=== PATIENT | male | born 1935 | race Caucasian/White ===

== ENCOUNTER 2023-07-29 10:23 | Outpatient (AMB) | payer MEDICARE, OTHER, SELFPAY ==
--- NOTE | 2023-07-29 10:34 | A.OFFPC_ITS ---
Vital Signs 07/29/23 10:35 07/29/23 10:54 Height 5 ft 7 in Weight 157 lb 6 oz BMI 24.6 BP 148/62 H 150/58 H Blood Pressure Location Lt brachial Lt brachial Position Sitting Sitting Respiration 16 Pulse 64 Pulse Source Pulse Oximeter Temp 98 F Temp Source Oral Pulse Oximetry (%) 98 Oxygen Delivery Method Room Air Intake Visit Reasons: Est Care Chronic conditions Intake Note: New patient visit Professional Shopper Required: Yes Professional Shopper Name: Fatou Allergies acetaminophen [From Percocet] Allergy (Unknown, Verified 07/29/23 10:57) Fainting lorazepam Allergy (Unknown, Verified 07/29/23 10:57) Fainting oxycodone [From Percocet] Allergy (Unknown, Verified 07/29/23 10:57) Fainting Medication List - Last Reconciled 07/29/23 by Benita Alexandre MD acetaminophen 325 mg PO QID PRN amlodipine 5 mg PO DAILY aspirin 81 mg PO DAILY atenolol 25 mg PO DAILY duloxetine 30 mg PO DAILY lisinopril 40 mg PO DAILY rosuvastatin 10 mg PO BEDTIME triamcinolone acetonide 0.1% 1 appl topical BID Tobacco use date assessed: 07/29/23 Fall risk assessment: No Falls in past year Last assessed Fall Risk: 07/29/23 Dental Screening Dental Screen Date: 07/29/23 Did you have a dental visit in the last 12 months?: No Did you have a dental problem in the last 6 months where you did not have access to dental care?: No Was dental information given to patient?: Patient has dentist (Has dentures, goes every two years) HPI HPI Comments History of Present Illness Details This is an 88 year old male with a past medical history of htn, s/p AVR, hyperlipidemia, OA, depression & anxiety presenting for follow up He is overall feeling well. continues to do well on cymbalta CV: On atenolol, lisinopril, crestor, ASA. follows with cardiology. no post TAVR complications PFS Medical History (Updated 07/29/23 @ 13:39 by Benita Alexandre MD) Anxiety Basal cell carcinoma Eczema Arthritis Social History (Updated 07/29/23 @ 11:03 by Glo Gerenwood CMA) [facility] Patient Tobacco Use Status: Never used Tobacco e-Cigarette/Vaping Use: Never Used service: Yes Current occupational status: retired Hearing needs: Yes (hearing aids) Vision needs: Yes (glasses) Questionnaire PHQ-9 Over the last 2 weeks, how often have you been bothered by any of the following problems? 1. Little interest or pleasure in doing things: not at all 2. Feeling down, depressed, or hopeless: not at all 3. Trouble falling or staying asleep, or sleeping too much: not at all 4. Feeling tired or having little energy: not at all 5. Poor appetite or overeating: not at all 6. Feeling bad about yourself - or that you are a failure or have let yourself or your family down: not at all 7. Trouble concentrating on things, such as reading the newspaper or watching television: not at all 8. Moving or speaking so slowly that other people could have noticed. Or the opposite - being so fidgety or restless that you have been moving around a lot more than usual: not at all 9. Thoughts that you would be better off or of hurting yourself in some way: not at all Total score: 0 Depression Screening Interpretation: Negative (neg) Depression Screening Done: Yes 19626 - PHQ-9 Billing: Yes Source: Developed by Drs. Javad Davis, Cindy Parra, Jet Hammond and colleagues, with an educational adalid from [employer]. Thrive Questionnaire Date Thrive assessed: 07/29/23 I am a: Patient What is your living situation today?: I have a steady place to live Within the past 12 months, did the food you bought not last and you didn't have the money to get more?: Never true Within the past 12 months, did you worry whether your food would run out before you got money to buy more?: Never true Do you have trouble paying for medicines?: No Do you have trouble getting transportation to medical appointments?: No Do you have trouble paying your heating and electricity bill?: No Do you have trouble taking care of your child, family member or friend?: No Do you have trouble with day-to-day activities such as bathing, preparing meals, shopping, managing finances, etc.?: No Are you currently unemployed and looking for a job?: No Are you interested in more education?: No Please select the resources that you would like help with: None Currently or been in a relationship where the following occur: no concerns reported THRIVE Score: 0 AUDIT C Alcohol Use Questionnaire (AUDIT-C) 1. How often do you have a drink containing alcohol?: Never 3. How often do you have six or more drinks on one occasion?: Never Total Score: 0 GAURANG-7 AMB Questionnaire GAURANG-7 Date GAURANG - 7 assessed: 07/29/23 Feeling nervous, anxious, or on edge: 0 = Not at all Not being able to stop or control worryin = Not at all Worrying too much about different things: 0 = Not at all Trouble relaxin = Not at all Being so restless that it is hard to sit still: 0 = Not at all Becoming easily annoyed or irritable: 0 = Not at all Feeling afraid as if something awful might happen: 0 = Not at all Total GAURANG-7 score (0-4 normal; 5-9 mild; 10-14 moderate; 15-21 severe): 0 Source: Developed by Drs. Javad Davis, Cindy Parra, Jet Hammond and colleagues, with an educational adalid from [employer]. GAURANG-7 Assessment Billing GAURANG-7 Assessment Tool: GAURANG-7 Assessment [id number] Review of Systems Const Details: ROS CONSTITUTIONAL: Denies weight loss, fever and chills. HEENT: Denies changes in vision and hearing. RESPIRATORY: Denies SOB and cough. CV: Denies palpitations and CP GI: Denies abdominal pain, nausea, vomiting and diarrhea. : Denies dysuria and urinary frequency. MSK: Denies new myalgia and joint pain. SKIN: Denies rash and pruritus. NEUROLOGICAL: Denies headache PSYCHIATRIC: Denies recent changes in mood. Physical exam (Primary Care) Vital Signs: Last Vital Signs Temp 98 F 07/29/23 10:35 Pulse 64 07/29/23 10:35 Resp 16 07/29/23 10:35 BP 150/58 H 07/29/23 10:54 Pulse Ox 98 07/29/23 10:35 Oxygen Delivery Method Room Air 07/29/23 10:35 BMI result Body Mass Index 24.6 Tobacco/Smoking Status: Tobacco use Status Tobacco use date assessed 07/29/23 07/29/23 11:05 Patient Tobacco Use Status Never used Tobacco 07/29/23 11:05 e-Cigarette/Vaping Use Never Used 07/29/23 11:05 PHQ-9: PHQ-9 Score PHQ-9: Total score 0 07/29/23 11:20 Depression Screening Interpretation: Negative (neg) Thrive Assessment: Date of Thrive Assessment Date Thrive assessed 07/29/23 07/29/23 11:05 Currently or been in a relationship where the following occur: no concerns reported Const Other: PHYSICAL EXAM: GENERAL: Alert and oriented x 3. NAD EYES: EOMI. Anicteric. HENT: Moist mucous membranes. LUNGS: Clear to auscultation bilaterally. CARDIOVASCULAR: Regular rate and rhythm. ABDOMEN: Soft, non-tender +bs EXTREMITIES: No edema. Non-tender. SKIN: No rashes or lesions. Warm. NEUROLOGIC: No focal neurological deficits. CN II-XII grossly intact PSYCHIATRIC: Cooperative. Appropriate mood and affect Assessment and Plan Assessment & Plan (1) Hyperlipidemia: Comment: continue statin Code(s): E78.5 - Hyperlipidemia, unspecified Qualifiers: Hyperlipidemia type: mixed hyperlipidemia Qualified Code(s): E78.2 - Mixed hyperlipidemia (2) Screening, deficiency anemia, iron: Code(s): Z13.0 - Encounter for screening for diseases of the blood and blood-forming organs and certain disorders involving the immune mechanism (3) Hypertension: Comment: continue current medications Code(s): I10 - Essential (primary) hypertension Qualifiers: Hypertension type: primary hypertension Qualified Code(s): I10 - Essential (primary) hypertension (4) Depression, major, recurrent, in partial remission: Code(s): F33.41 - Major depressive disorder, recurrent, in partial remission Plan: depression is well controlled on current therapy (5) S/P TAVR (transcatheter aortic valve replacement): Code(s): Z95.2 - Presence of prosthetic heart valve Orders: Orders Basic Metabolic Panel Today E78.5 - Hyperlipidemia, unspecified, I10 - Essential (primary) hypertension, Z95.2 - Presence of prosthetic heart valve Complete Blood Count Auto Diff Today E78.5 - Hyperlipidemia, unspecified, F33.41 - Major depressive disorder, recurrent, in partial remission, I10 - Essential (primary) hypertension, Z13.0 - Encounter for screening for diseases of the blood and blood-forming organs and certain disorders involving the immune mechanism, Z95.2 - Presence of prosthetic heart valve Coding Level of Care Code Est Pt Level 4 (31520) Complex EM visit Add On G2211 Diagnoses Mixed hyperlipidemia E78.2 Hyperlipidemia type: mixed hyperlipidemia Screening, deficiency anemia, iron Z13.0 Primary hypertension I10 Hypertension type: primary hypertension Depression, major, recurrent, in partial remission F33.41 S/P TAVR (transcatheter aortic valve replacement) Z95.2 Additional Codes GAURANG-7 Assessment Billing - GAURANG-7 Assessment Tool: GAURANG-7 Assessment [id number] ([id number])
[2023-07-29 10:35] VITALS: BP 148/62; PULSE 64; RESP 16; TEMP 36.6; O2SAT 98; BMI 24.6
[2023-07-29 10:54] VITALS: BP 150/58
== END 2023-07-29 13:14 | disposition home or self-care (01) ==
PROVIDERS: Visit Provider Internal Medicine
DX: E78.2 Mixed hyperlipidemia (principal); Z13.0 Encounter for screening for diseases of the blood and blood-forming organs and certain disorders involving the immune mechanism; I10 Essential (primary) hypertension; F33.41 Major depressive disorder, recurrent, in partial remission; Z95.2 Presence of prosthetic heart valve
CPT/HCPCS: 99214; G2211

== ENCOUNTER 2023-08-01 11:32 | Outpatient (REF) | payer MEDICARE, OTHER, SELFPAY ==
[2023-08-01 14:40] LABS: MANUAL DIFF FLAG NO
[2023-08-01 14:51] LABS: Basophils Absolute Auto 0.1 X10*3/uL (0.0-0.2); Basophils Percent Auto 0.5 % (0-2); Eosinophils Absolute Auto 0.5 X10*3/uL (0.0-0.4); Eosinophils Percent Auto 5.2 % (0-4); Hematocrit 38.1 % (42.0-52.0); Hemoglobin 12.6 g/dl (14.0-18.0); Imm Gran Abs Auto 0.03 X10*3/uL (0.00-0.03); Imm Gran Pct Auto 0.3 % (0.0-0.4); Lymphocytes Absolute Auto 3.6 X10*3/uL (1.2-4.9); Lymphocytes Percent Auto 37.4 % (20-40); Mean Corpuscular HGB Conc 33.1 g/dl (31.0-36.0); Mean Corpuscular Hemoglobin 29.4 pg (27.0-33.0); Mean Corpuscular Volume 88.8 fL (80.0-98.0); Mean Platelet Volume 9.6 fL (9.4-12.4); Monocytes Absolute Auto 0.8 X10*3/uL (0.1-1.2); Monocytes Percent Auto 8.8 % (2-11); Neutrophils Absolute Auto 4.6 x10*3/uL (2.0-8.3); Neutrophils Percent Auto 47.8 % (45-73); Platelet Count 234 X10*3/uL (160-400); Red Blood Count 4.29 X10*6/uL (4.60-5.80); Red Cell Distribution Width 13.8 % (11.0-16.0); White Blood Count 9.5 X10*3/uL (4.8-10.8)
[2023-08-01 15:23] LABS: Anion Gap 13 (12-20); Blood Urea Nitrogen 14 mg/dL (9-16); Calcium 9.7 mg/dL (8.4-10.2); Carbon Dioxide 27 mmol/L (22-29); Chloride 100 mmol/L (96-108); Estimated Glomerular Filt Rate > 60; Glucose Random 81 mg/dL (60-115); Potassium 4.2 mmol/L (3.3-5.1); Sodium 136 mmol/L (135-145)
== END 2023-08-01 11:33 | disposition home or self-care (01) ==
LOC: HO.WFDLDS 11:32
PROVIDERS: Visit Provider Internal Medicine
DX: I10 Essential (primary) hypertension (principal); E78.5 Hyperlipidemia, unspecified; Z95.2 Presence of prosthetic heart valve; F33.41 Major depressive disorder, recurrent, in partial remission; Z13.0 Encounter for screening for diseases of the blood and blood-forming organs and certain disorders involving the immune mechanism
CPT/HCPCS: 36415; 80048; 85025

== ENCOUNTER 2024-01-20 11:10 | Outpatient (AMB) | payer MEDICARE, OTHER, SELFPAY ==
--- NOTE | 2024-01-20 11:23 | A.OFFPC_ITS ---
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 Depressive symptoms, neuropathy- continues to do well on cymbalta CV: On atenolol, lisinopril, crestor, ASA. follows with cardiology. no post TAVR complications Is having some right foot pain mid distal. Worse with his current shoes. Pulses intact. ROS CONSTITUTIONAL: Denies weight loss, fever and chills. HEENT: Denies changes in vision and hearing. RESPIRATORY: Denies SOB and cough. CV: Denies palpitations and CP GI: Denies abdominal pain, nausea, vomiting and diarrhea. : Denies dysuria and urinary frequency. MSK: Denies new myalgia and joint pain. SKIN: Denies rash and pruritus. NEUROLOGICAL: Denies headache PSYCHIATRIC: Denies recent changes in mood. PHYSICAL EXAM: GENERAL: Alert and oriented x 3. NAD EYES: EOMI. Anicteric. HENT: Moist mucous membranes. No scleral icterus. No cervical lymphadenopathy. LUNGS: Clear to auscultation bilaterally. CARDIOVASCULAR: Regular rate and rhythm. No murmur. No JVD. ABDOMEN: Soft, non-tender +bs EXTREMITIES: No edema. Non-tender. SKIN: No rashes or lesions. Warm. NEUROLOGIC: No focal neurological deficits. CN II-XII grossly intact PSYCHIATRIC: Cooperative. Appropriate mood and affect [facility] Medical History (Updated 02/04/24 @ 14:00 by Benita Alexandre MD) Anxiety Basal cell carcinoma Eczema Arthritis Social History (Updated 07/29/23 @ 11:03 by Glo Greenwood CMA) Housing: Condominium Patient Tobacco Use Status: Never used Tobacco e-Cigarette/Vaping Use: Never Used service: Yes Current occupational status: retired Hearing needs: Yes (hearing aids) Vision needs: Yes (glasses) Questionnaire PHQ-9 Over the last 2 weeks, how often have you been bothered by any of the following problems? 1. Little interest or pleasure in doing things: not at all 4. Feeling tired or having little energy: not at all Source: Developed by Drs. Javad Davis, Cindy Parra, Jet Hammond and colleagues, with an educational adalid from [employer]. Thrive Questionnaire Date Thrive assessed: 01/17/24 I am a: Patient What is your living situation today?: I have a steady place to live Within the past 12 months, did the food you bought not last and you didn't have the money to get more?: Never true Within the past 12 months, did you worry whether your food would run out before you got money to buy more?: Never true Do you have trouble paying for medicines?: No Do you have trouble getting transportation to medical appointments?: No Do you have trouble paying your heating and electricity bill?: No Do you have trouble taking care of your child, family member or friend?: No Do you have trouble with day-to-day activities such as bathing, preparing meals, shopping, managing finances, etc.?: No Are you currently unemployed and looking for a job?: No Are you interested in more education?: No Please select the resources that you would like help with: None Currently or been in a relationship where the following occur: No concerns reported THRIVE Score: 0 AUDIT C Alcohol Use Questionnaire (AUDIT-C) 1. How often do you have a drink containing alcohol?: Monthly or less 2. How many drinks containing alcohol do you have on a typical day when you are drinking?: 1 or 2 3. How often do you have six or more drinks on one occasion?: Never Total Score: 1 GAURANG-7 AMB Questionnaire GAURANG-7 Date GAURANG - 7 assessed: 07/29/23 Feeling nervous, anxious, or on edge: 0 = Not at all Not being able to stop or control worryin = Not at all Worrying too much about different things: 0 = Not at all Trouble relaxin = Not at all Being so restless that it is hard to sit still: 0 = Not at all Becoming easily annoyed or irritable: 0 = Not at all Feeling afraid as if something awful might happen: 0 = Not at all Total GAURANG-7 score (0-4 normal; 5-9 mild; 10-14 moderate; 15-21 severe): 0 Source: Developed by Drs. Javad Davis, Cindy Parra, Jet Hammond and colleagues, with an educational adalid from [employer]. Physical exam (Primary Care) Vital Signs: Last Vital Signs Pulse 68 01/20/24 11:27 BP 156/60 H 01/20/24 11:34 Pulse Ox 99 01/20/24 11:27 Oxygen Delivery Method Room Air 01/20/24 11:27 BMI result Body Mass Index 24.7 Tobacco/Smoking Status: Tobacco use Status Tobacco use date assessed 07/29/23 01/20/24 11:24 Patient Tobacco Use Status Never used Tobacco 01/20/24 11:24 e-Cigarette/Vaping Use Never Used 01/20/24 11:24 Thrive Assessment: Date of Thrive Assessment Date Thrive assessed 01/17/24 01/20/24 11:24 Currently or been in a relationship where the following occur: No concerns reported Coding Level of Care Code Est Pt Level 4 (77847) Diagnoses Depression, major, recurrent, in partial remission F33.41 Primary hypertension I10 Hypertension type: primary hypertension Mixed hyperlipidemia E78.2 Hyperlipidemia type: mixed hyperlipidemia Assessment & Plan Assessment & Plan (1) Depression, major, recurrent, in partial remission: Code(s): F33.41 - Major depressive disorder, recurrent, in partial remission Category: Medical Plan: stable on cymbalta (2) Hypertension: Code(s): I10 - Essential (primary) hypertension Category: Medical Qualifiers: Hypertension type: primary hypertension Qualified Code(s): I10 - Essential (primary) hypertension Plan: Mildly hypertensive today. He will recheck at home. Generally adequatelly controlled. No headache, vision changes (3) Hyperlipidemia: Comment: continue statin Code(s): E78.5 - Hyperlipidemia, unspecified Category: Medical Qualifiers: Hyperlipidemia type: mixed hyperlipidemia Qualified Code(s): E78.2 - Mixed hyperlipidemia Plan: stable on statin Orders: Orders Comprehensive Met. Panel 01/20/24 D64.9 - Anemia, unspecified, I10 - Essential (primary) hypertension, E78.2 - Mixed hyperlipidemia Vitamin B12 and Folate 01/20/24 D64.9 - Anemia, unspecified, I10 - Essential (primary) hypertension, E78.2 - Mixed hyperlipidemia IRON PROFILE 01/20/24 D64.9 - Anemia, unspecified, I10 - Essential (primary) hypertension, E78.2 - Mixed hyperlipidemia Complete Blood Count Auto Diff 01/20/24 D64.9 - Anemia, unspecified, I10 - Essential (primary) hypertension, E78.2 - Mixed hyperlipidemia TSH reflex Free T4 01/20/24 D64.9 - Anemia, unspecified, I10 - Essential (primary) hypertension, E78.2 - Mixed hyperlipidemia Medications: New diclofenac sodium 1% (Arthritis Pain (diclofenac)) apply to single knee, ankle, foot; for foot includes sole/toes/top of foot 4 grams topical QID 100 grams 3RF
[2024-01-20 11:27] VITALS: BP 156/64; PULSE 68; O2SAT 99; BMI 24.7
[2024-01-20 11:34] VITALS: BP 156/60
== END 2024-01-20 12:20 | disposition home or self-care (01) ==
LOC: HO.HMCFM 11:10
PROVIDERS: PCP Internal Medicine; Visit Provider Internal Medicine
DX: F33.41 Major depressive disorder, recurrent, in partial remission (principal); I10 Essential (primary) hypertension; E78.2 Mixed hyperlipidemia

== ENCOUNTER → 2024-01-20 11:10 | Outpatient (BNVA) | payer MEDICARE, OTHER, SELFPAY | PROVIDERS: PCP Internal Medicine; Visit Provider Internal Medicine ==

== ENCOUNTER 2024-01-20 12:12 | Outpatient (REF) | payer MEDICARE, OTHER, SELFPAY ==
[2024-01-20 14:40] LABS: MANUAL DIFF FLAG NO
[2024-01-20 14:50] LABS: Basophils Absolute Auto 0.1 X10*3/uL (0.0-0.2); Basophils Percent Auto 0.6 % (0-2); Eosinophils Absolute Auto 0.6 X10*3/uL (0.0-0.4); Eosinophils Percent Auto 5.8 % (0-4); Hematocrit 38.8 % (42.0-52.0); Hemoglobin 12.6 g/dl (14.0-18.0); Imm Gran Abs Auto 0.03 X10*3/uL (0.00-0.03); Imm Gran Pct Auto 0.3 % (0.0-0.4); Lymphocytes Absolute Auto 3.3 X10*3/uL (1.2-4.9); Lymphocytes Percent Auto 34.2 % (20-40); Mean Corpuscular HGB Conc 32.5 g/dl (31.0-36.0); Mean Corpuscular Hemoglobin 28.4 pg (27.0-33.0); Mean Corpuscular Volume 87.4 fL (80.0-98.0); Mean Platelet Volume 9.6 fL (9.4-12.4); Monocytes Absolute Auto 0.8 X10*3/uL (0.1-1.2); Monocytes Percent Auto 8.6 % (2-11); Neutrophils Absolute Auto 4.9 x10*3/uL (2.0-8.3); Neutrophils Percent Auto 50.5 % (45-73); Platelet Count 225 X10*3/uL (160-400); Red Blood Count 4.44 X10*6/uL (4.60-5.80); Red Cell Distribution Width 13.7 % (11.0-16.0); White Blood Count 9.7 X10*3/uL (4.8-10.8)
[2024-01-20 16:11] LABS: Alanine Aminotransferase 13 U/L (0-40); Albumin Level 4.5 g/dL (3.5-5.0); Alkaline Phosphatase 73 U/L (39-117); Anion Gap 15 (12-20); Aspartate Amino Transferase 25 U/L (5-37); Bilirubin Total 0.7 mg/dL (0.0-1.0); Blood Urea Nitrogen 16 mg/dL (9-16); Calcium 10.2 mg/dL (8.4-10.2); Carbon Dioxide 26 mmol/L (22-29); Chloride 99 mmol/L (96-108); Estimated Glomerular Filt Rate > 60; Glucose Random 95 mg/dL (60-115); Iron 68 mcg/dL (45-160); Percent Iron Saturation 21 % (15-50); Potassium 4.7 mmol/L (3.3-5.1); Sodium 135 mmol/L (135-145); Total Iron Binding Capacity 329 mcg/dL (228-428); Total Protein 7.4 g/dL (6.5-8.0); Unsaturated Iron Binding 261 ug/dL
[2024-01-20 16:32] LABS: TSH reflex Free T4 2.33 uIU/mL (0.32-4.0)
[2024-01-20 17:05] LABS: Folate 7.9 ng/mL (> or = 4.0); Vitamin B12 526 pg/mL (200-900)
== END 2024-01-20 12:13 | disposition home or self-care (01) ==
LOC: HO.WFDLDS 12:12
PROVIDERS: Visit Provider Internal Medicine
DX: F33.41 Major depressive disorder, recurrent, in partial remission (principal); I10 Essential (primary) hypertension; E78.2 Mixed hyperlipidemia; D64.9 Anemia, unspecified; Z95.2 Presence of prosthetic heart valve; Z79.82 Long term (current) use of aspirin; Z79.899 Other long term (current) drug therapy
CPT/HCPCS: 36415; 80053; 82607; 82746; 83540; 84443; 85025; 99212

== ENCOUNTER 2024-07-27 10:30 | Outpatient (AMB) | payer MEDICARE, OTHER, SELFPAY ==
--- NOTE | 2024-07-27 10:33 | A.OFFPC_ITS ---
Intake Visit Reasons: physicalexam/awv Intake Note: Medical wellness visit. 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 Allergies acetaminophen [From Percocet] Allergy (Unknown, Verified 07/29/23 10:57) Fainting lorazepam Allergy (Unknown, Verified 07/29/23 10:57) Fainting oxycodone [From Percocet] Allergy (Unknown, Verified 07/29/23 10:57) Fainting Tobacco use date assessed: 07/29/23 Dental Screening Dental Screen Date: 07/29/23 [facility] Medical History (Updated 02/04/24 @ 14:00 by Benita Alexandre MD) Anxiety Basal cell carcinoma Eczema Arthritis Social History (Updated 07/29/23 @ 11:03 by Glo Greenwood CMA) Housing: Condominium Patient Tobacco Use Status: Never used Tobacco e-Cigarette/Vaping Use: Never Used service: Yes Current occupational status: retired Hearing needs: Yes (hearing aids) Vision needs: Yes (glasses) Questionnaire Thrive Questionnaire Date Thrive assessed: 07/27/24 I am a: Patient What is your living situation today?: I have a steady place to live Within the past 12 months, did the food you bought not last and you didn't have the money to get more?: Never true Within the past 12 months, did you worry whether your food would run out before you got money to buy more?: Never true Do you have trouble paying for medicines?: No Do you have trouble getting transportation to medical appointments?: No Do you have trouble paying your heating and electricity bill?: No Do you have trouble taking care of your child, family member or friend?: No Do you have trouble with day-to-day activities such as bathing, preparing meals, shopping, managing finances, etc.?: No Are you currently unemployed and looking for a job?: No Are you interested in more education?: No Please select the resources that you would like help with: None Currently or been in a relationship where the following occur: No concerns reported THRIVE Score: 0 AUDIT C Alcohol Use Questionnaire (AUDIT-C) 2. How many drinks containing alcohol do you have on a typical day when you are drinking?: 1 or 2 3. How often do you have six or more drinks on one occasion?: Never Total Score: 0 GAURANG-7 AMB Questionnaire GAURANG-7 Date GAURANG - 7 assessed: 07/29/23 Source: Developed by Drs. Javad Davis, Cindy Parra, Jet Hammond and colleagues, with an educational adalid from [employer]. Physical exam (Primary Care) Tobacco/Smoking Status: Tobacco use Status Tobacco use date assessed 07/29/23 01/20/24 11:24 Patient Tobacco Use Status Never used Tobacco 01/20/24 11:24 e-Cigarette/Vaping Use Never Used 01/20/24 11:24 Thrive Assessment: Date of Thrive Assessment Date Thrive assessed 07/27/24 07/27/24 10:31 Currently or been in a relationship where the following occur: No concerns reported Coding
--- NOTE | 2024-07-27 10:40 | AM.OFFVISMDC ---
Intake Vital Signs 07/27/24 10:58 07/27/24 10:59 BP 146/62 H 140/62 H Blood Pressure Location Rt brachial Rt brachial Position Sitting Sitting Respiration 14 Pulse 65 Pulse Source Pulse Oximeter Pulse Oximetry (%) 96 Oxygen Delivery Method Room Air Intake Visit Reasons: physicalexam/awv Intake Note: Medical wellness visit. Tax Accountant Required: Yes Tax Accountant Language: Upper Sorbian Tax Accountant Name: Lianne [id number] Accompanied by: Spouse Allergies acetaminophen [From Percocet] Allergy (Unknown, Verified 07/29/23 10:57) Fainting lorazepam Allergy (Unknown, Verified 07/29/23 10:57) Fainting oxycodone [From Percocet] Allergy (Unknown, Verified 07/29/23 10:57) Fainting Medication List - Last Reconciled 07/27/24 by Benita Alexandre MD acetaminophen 325 mg PO QID PRN amlodipine 5 mg PO DAILY aspirin 81 mg PO DAILY atenolol 25 mg PO DAILY diclofenac sodium 1% (Arthritis Pain (diclofenac)) 4 grams topical QID duloxetine 30 mg PO DAILY famotidine 20 mg PO DAILY lisinopril 40 mg PO DAILY rosuvastatin 10 mg PO BEDTIME triamcinolone acetonide 0.1% 1 appl topical BID HPI HPI Comments History of Present Illness Details This is an 89 year old male with a past medical history of htn, s/p AVR, hyperlipidemia, OA, depression & anxiety presenting for MWV Depressive symptoms, neuropathy- continues to do well on cymbalta. Continues to have some leg pain at night, intermittent right foot pain mid distal. CV: On atenolol, lisinopril, crestor, ASA. BP is 140/62. says BP was low at home 100-120/60s. BP here is generally on the high side. Did have an episode of weakness/dizziness which quickly passed. follows with cardiology, Dr Jensen. no post TAVR complications Every 2 years see doctor MISSAEL CONSTITUTIONAL: Denies weight loss, fever and chills. HEENT: Denies changes in vision and hearing. RESPIRATORY: Denies SOB and cough. CV: Denies palpitations and CP GI: Denies abdominal pain, nausea, vomiting and diarrhea. : Denies dysuria and urinary frequency. MSK: Denies new myalgia and joint pain. SKIN: Denies rash and pruritus. NEUROLOGICAL: Denies headache PSYCHIATRIC: Denies recent changes in mood. PHYSICAL EXAM: GENERAL: Alert and oriented x 3. NAD EYES: EOMI. Anicteric. HENT: Moist mucous membranes. No scleral icterus. No cervical lymphadenopathy. LUNGS: Clear to auscultation bilaterally. CARDIOVASCULAR: Regular rate and rhythm. No murmur. No JVD. ABDOMEN: Soft, non-tender +bs EXTREMITIES: No edema. Non-tender. SKIN: No rashes or lesions. Warm. NEUROLOGIC: No focal neurological deficits. CN II-XII grossly intact PSYCHIATRIC: Cooperative. Appropriate mood and affect [facility] Medical History Anxiety Basal cell carcinoma Eczema Arthritis Social History Housing: Condominium Patient Tobacco Use Status: Never used Tobacco e-Cigarette/Vaping Use: Never Used service: Yes Current occupational status: retired Hearing needs: Yes (hearing aids) Vision needs: Yes (glasses) Questionnaire Medicare Wellness Checkup What is your age?: 80 or older What gender do you identify with?: male During the past 4 weeks, how much have you been bothered by emotional problems such as feeling anxious, depressed, irritable, sad or downhearted, and blue?: not at all During the past 4 weeks, has your physical & emotional health limited your social activities with family, friends, neighbors, or groups?: not at all During the past 4 weeks, how much bodily pain have you generally had?: mild pain During the past 4 weeks, was someone available to help you if you needed & wanted help?: yes, as much as I wanted During the past 4 weeks, what was the hardest physical activity you could do for at least 2 minutes?: moderate Can you get to places out of walking distance without help? (For eg., can you travel alone on buses, taxis or drive your car?): Yes Can you go shopping for groceries or clothes without someone's help?: Yes Can you prepare your own meals?: Yes Can you do your housework without help?: Yes Because of any health problems, do you need the help of another person with your personal care needs such as eating, bathing, dressing or getting around the house?: Yes Can you handle your own money without help?: No During the past 4 weeks, how would you rate your health in general?: excellent During the past 4 weeks how have things been going for you?: very well; could hardly better Are you having difficulties driving your car?: no Do you always fasten your seat belt when you are in a car?: yes, usually During past 4 weeks, have you been bothered by the following: never: Sexual problems?, Trouble eating well?, Teeth or denture problems?, Problems using the telephone? and Tiredness or fatigue? and seldom: Falling or dizzy when standing up Have you fallen 2 or more times in the past year?: No Are you afraid of falling?: No Are you a smoker?: no During the past 4 weeks, how many drinks of wine, beer, or other alcoholic beverages did you have?: no alcohol at all Do you exercise for about 20 minutes 3 or more times a week?: yes, most of the time Have you been given information to help with the following?: yes: Hazards in your house that might hurt you? and yes: Keeping track of your medications? How often do you have trouble taking medicines the way you have been told to take them?: I always take medicine as prescribed How confident are you that you can control & manage most of your health problems?: very confident What is your race?: White Mini Mental State Exam (MMSE) Orientation What is the (year) (season) (date) (day) (month)?: year (1935), , date, day and month Where are we (state) (county) (town or city) ([facility]) (floor)?: state ([place]), [facility] ([place]), town or city ([place]) and floor ([place] Registration Name of 3 unrelated objects clearly and slowly, then ask patient to repeat all 3 of them. (1st repeat determines score. Make sure they can repeat all three): object 1, object 2 and object 3 Language Show patient a wristwatch & ask what it is. Repeat for pencil.: watch and pencil Ask the patient to repeat the phrase 'No ifs, ands, or buts' after you.: correct Ask the patient to 'take a piece of paper with their right hand' 'fold paper in half' 'place paper on floor': take paper in right hand Score Score: 16 Activity of Daily Living Bathing - sponge bath, tub bath or shower: receives no assistance (gets in/out by self, if usual bathing means Dressing - getting clothes from closets & drawers, including inner/outer garments & fasteners.: gets clothes & gets completely dressed without help Toileting - going to the 'toilet room' for urine/bowel elimination & cleaning self/arranging clothes: goes to toilet room, cleans self, arranges clothes without help Transfer: moves in & out of bed and chair without help (may use support object) Continence: controls urination/bowel movements completely by self Feeding: feeds self without help Total Score: 0 Information obtained from: patient Using telephone: independent Traveling: independent Shopping: independent Preparing meals: independent Housework: independent Taking medicine: independent Managing money: needs assistance Physical Exam Vital Signs: Last Vital Signs Pulse 65 07/27/24 10:58 Resp 14 07/27/24 10:58 BP 140/62 H 07/27/24 10:59 Pulse Ox 96 07/27/24 10:58 Oxygen Delivery Method Room Air 07/27/24 10:58 Assessment & Plan Assessment & Plan (1) Medicare annual wellness visit, subsequent: Code(s): Z00.00 - Encounter for general adult medical examination without abnormal findings (2) Hypertension: Code(s): I10 - Essential (primary) hypertension Qualifiers: Hypertension type: primary hypertension Qualified Code(s): I10 - Essential (primary) hypertension (3) S/P TAVR (transcatheter aortic valve replacement): Code(s): Z95.2 - Presence of prosthetic heart valve (4) Depression, major, recurrent, in partial remission: Code(s): F33.41 - Major depressive disorder, recurrent, in partial remission Plan MWV Stable chronic health conditions Can add baclofen before bed as needed for leg pain will continue to monitor BP and call if running low at home. Orders: Orders Lipid Panel Today D64.9 - Anemia, unspecified, E78.2 - Mixed hyperlipidemia, I10 - Essential (primary) hypertension Comprehensive Met. Panel Today D64.9 - Anemia, unspecified, E78.2 - Mixed hyperlipidemia, I10 - Essential (primary) hypertension Complete Blood Count Auto Diff Today D64.9 - Anemia, unspecified, E78.2 - Mixed hyperlipidemia, I10 - Essential (primary) hypertension Medications: New baclofen 15 mg PO BEDTIME 90 tabs 3RF Quality Reporting (2019) Fall Risk Screening ([facility] 139) Last assessed Fall Risk: 07/27/24 Fall risk assessment: No Falls in past year Coding Level of Care Code Medicare Subsequent (G0439) Diagnoses Medicare annual wellness visit, subsequent Z00.00 Primary hypertension I10 Hypertension type: primary hypertension S/P TAVR (transcatheter aortic valve replacement) Z95.2 Depression, major, recurrent, in partial remission F33.41
[2024-07-27 10:58] VITALS: BP 146/62; PULSE 65; RESP 14; O2SAT 96
[2024-07-27 10:59] VITALS: BP 140/62
== END 2024-07-27 11:22 | disposition home or self-care (01) ==
LOC: HO.HMCFM 10:31
PROVIDERS: PCP Internal Medicine; Visit Provider Internal Medicine
DX: Z00.00 Encounter for general adult medical examination without abnormal findings (principal); I10 Essential (primary) hypertension; Z95.2 Presence of prosthetic heart valve; F33.41 Major depressive disorder, recurrent, in partial remission

== ENCOUNTER → 2024-07-27 10:30 | Outpatient (BNVA) | payer MEDICARE, OTHER, SELFPAY | PROVIDERS: PCP Internal Medicine; Visit Provider Internal Medicine | DX: Z00.00 Encounter for general adult medical examination without abnormal findings (principal); I10 Essential (primary) hypertension; F33.41 Major depressive disorder, recurrent, in partial remission; Z95.2 Presence of prosthetic heart valve | CPT/HCPCS: 99212 ==

== ENCOUNTER 2024-07-27 11:45 | Outpatient (REF) | payer MEDICARE, OTHER, SELFPAY ==
--- OUTSIDE RECORDS SUMMARY | 2024-07-27 12:29 | XMS_ITS | Encounter Summary ---
Author Organization [facility] Address [address] [place] [address] Care Team Providers Care Carpenter Repair Name Role Phone Ian Bello MD Primary Care Provider Spring valencia Encounter Details Date Type Department Care Team Description 11/19/2018 Hereditary Cancer Qu iz Results Medical Records [address] [place] [id number] Abstract, Provider Social History Tobacco Use Types Packs/Day Years Used Date Smoking Tobacco: Never Assessed Sex Assigned at Date Recorded Not on file documented as of this encounter Plan of Treatment Not on file documented as of this encounter Visit Diagnoses Not on filedocumented in this encounter Care Teams Carpenter Repair Relationship Specialty Start Date End Date Ian Bello MD PCP - General Internal Medicine 11/13/18 documented as of this encounter
--- OUTSIDE RECORDS SUMMARY | 2024-07-27 12:29 | XMS_ITS | Encounter Summary ---
Author Organization [facility] Address [address] [place] [address] Care Team Providers Care Boardinghouse Keeper Name Role Phone Ian Bello MD Primary Care Provider Spring valencia Encounter Details Date Type Department Care Team Description 12/25/2018 Orders Only Medicine/Pediatrics - [address] [phone] Benita Khanna MD Leukocytosis, unspecified type (Primary Dx); Low serum sodium Social History Tobacco Use Types Packs/Day Years Used Date Smoking Tobacco: Never Smokeless Tobacco: Never Alcohol Use Standard Drinks/Week Comments No 0 (1 standard drink = 0.6 oz pur e alcohol) Sex Assigned at Date Recorded Not on file documented as of this encounter Plan of Treatment Scheduled Orders Name Type Priority Associated Diagnoses Orde r Schedule AUTOMATED HEMOGRAM PLATELET COUNT Lab Routine Leukocytosis, unspecified type Low serum sodium Expected: 12/25/2018, Expires: 12/25/2019 WBC, AUTOMATED DIFFERENTIAL Lab Routine Leukocytosis, unspecified type Low serum sodium Expected: 12/25/2018, Expires: 12/25/2019 COMPREHENSIVE METABOLIC PANEL Lab Routine Leukocytosis, unspecified type Low serum sodium Expected: 12/25/2018, Expires: 12/25/2019 documented as of this encounter Visit Diagnoses Diagnosis Leukocytosis, unspecified type- Primary Low serum sodium documented in this encounter Care Teams Boardinghouse Keeper Relationship Specialty Start Date End Date Ian Bello MD PCP - General Internal Medicine 11/13/18 documented as of this encounter
--- OUTSIDE RECORDS SUMMARY | 2024-07-27 12:29 | XMS_ITS | Encounter Summary ---
Author Organization [facility] Address [address] [place] [address] Care Team Providers Care Vice President Investor Relations Name Role Phone Ian Bello MD Primary Care Provider Spring valencia Encounter Details Date Type Department Care Team Description 05/11/2020 Water Main Inspector Report Medical Records [address] [place] [id number] Dillan Jensen MD Social History Tobacco Use Types Packs/Day Years [...] on filedocumented in this encounter Care Teams Vice President Investor Relations Relationship Specialty Start Date End Date Ian Bello MD PCP - General Internal Medicine 11/13/18 documented as of this encounter
[2024-07-27 14:18] LABS: MANUAL DIFF FLAG NO
[2024-07-27 14:26] LABS: Basophils Absolute Auto 0.1 X10*3/uL (0.0-0.2); Basophils Percent Auto 0.7 % (0-2); Eosinophils Absolute Auto 0.7 X10*3/uL (0.0-0.4); Eosinophils Percent Auto 7.1 % (0-4); Hemoglobin 11.8 g/dl (14.0-18.0); Imm Gran Abs Auto 0.03 X10*3/uL (0.00-0.03); Imm Gran Pct Auto 0.3 % (0.0-0.4); Lymphocytes Absolute Auto 3.8 X10*3/uL (1.2-4.9); Lymphocytes Percent Auto 39.1 % (20-40); Mean Corpuscular HGB Conc 32.8 g/dl (31.0-36.0); Mean Corpuscular Volume 85.5 fL (80.0-98.0); Mean Platelet Volume 9.7 fL (9.4-12.4); Monocytes Absolute Auto 0.9 X10*3/uL (0.1-1.2); Monocytes Percent Auto 9.1 % (2-11); Neutrophils Absolute Auto 4.2 x10*3/uL (2.0-8.3); Neutrophils Percent Auto 43.7 % (45-73); Platelet Count 245 X10*3/uL (160-400); Red Blood Count 4.21 X10*6/uL (4.60-5.80); Red Cell Distribution Width 14.6 % (11.0-16.0); White Blood Count 9.6 X10*3/uL (4.8-10.8)
[2024-07-27 14:59] LABS: Alanine Aminotransferase 12 U/L (0-40); Albumin Level 4.3 g/dL (3.5-5.0); Anion Gap 12 (12-20); Aspartate Amino Transferase 29 U/L (5-37); Bilirubin Total 0.6 mg/dL (0.0-1.0); Blood Urea Nitrogen 23 mg/dL (9-16); Calcium 9.6 mg/dL (8.4-10.2); Carbon Dioxide 27 mmol/L (22-29); Chloride 98 mmol/L (96-108); Cholesterol 148 mg/dL (<200); Estimated Glomerular Filt Rate > 60; Glucose Random 90 mg/dL (60-115); HDL Cholesterol 69 mg/dL (>40); LDL Cholesterol Calculated 62 mg/dL (<100); Potassium 4.9 mmol/L (3.3-5.1); Sodium 132 mmol/L (135-145); Triglycerides 87 mg/dL (<150)
[2024-07-27 15:16] LABS: Alkaline Phosphatase 71 U/L (39-117)
== END 2024-07-27 11:46 | disposition home or self-care (01) ==
LOC: HO.WFDLDS 11:45
PROVIDERS: Visit Provider Internal Medicine
DX: Z00.00 Encounter for general adult medical examination without abnormal findings (principal); I10 Essential (primary) hypertension; F33.41 Major depressive disorder, recurrent, in partial remission; E78.2 Mixed hyperlipidemia; D64.9 Anemia, unspecified; Z95.2 Presence of prosthetic heart valve
CPT/HCPCS: 36415; 80053; 80061; 85025; 99212